=== PATIENT | male | born 1990 | race African-American/Black ===

== ENCOUNTER 2018-03-04 19:00 | Emergency (ER) | payer BC ==
[2018-03-04] MEDS ORDERED: NA CHLORIDE 0.9% 1,000 ML ONE ×2 (20:27→21:27)
[2018-03-04] MEDS ORDERED: ONDANSETRON 4 MG/2 ML VIAL ONE (20:27)
[2018-03-04 20:30] LABS: Absolute Lymphocytes (CBC) 1.8 K/uL (0.7-4.9); Absolute Monocytes 0.7 K/uL (0.1-1.3); Absolute Neutrophil 4.1 K/uL (1.8-8.0); Basophils % 0.8 % (0-1.3); Eosinophils % 0.9 % (0-4.4); Hematocrit 44.4 % (39.6-49.0); Lymphocytes % 26.5 % (15.3-44.8); MCV 91.5 fL (80-100); MPV 8.1 fL (7.6-11.3); Monocytes % 9.8 % (3.3-12.3); RBC Red Blood Cell Count 4.85 M/uL (4.33-5.43)
[2018-03-04 20:56] LABS: Albumin 4.7 g/dL (3.4-5.0); Bilirubin Direct 0.1 mg/dL (0-0.2); Bilirubin Total 0.9 mg/dL (0.2-1.0); Potassium 4.3 mmol/L (3.5-5.1); Protein, Total 9.6 g/dL (6.4-8.2)
[2018-03-04 21:08] LABS: Urine Blood NEGATIVE (NEG); Urine Glucose TRACE (NEG); Urine Protein 2+ (NEG); Urine Specific Gravity >1.030 (1.005-1.030); Urine pH 5.5 (5.0-7.0)
[2018-03-04 21:12] LABS: Calcium Oxalate Crystals- Ur FEW (NONE SEEN); Urine Amorphous Sediment 1+ /HPF (NONE SEEN); Urine Bacteria <20 /HPF (NONE SEEN); Urine Culture Reflex Order NOT NEEDED; Urine RBC <5 /HPF (NONE SEEN)
--- NOTE | 2018-03-04 21:47 | RAD REPORT ---
EXAM DESCRIPTION: CT - Stone Protocol - 03/04/2018 9:30 pm CLINICAL HISTORY: Flank pain. FLANK PAIN COMPARISON: No comparisons TECHNIQUE: Axial images were obtained without oral or IV contrast. Lack of contrast limits solid org an and vascular assessment. The [id number] spans the entirety of the system partially obscuring uppermost abdomen and lung bases. Coronal reformatted images were obtained and reviewed. All CT scans are performed using dose optimization technique as appropriate and may include automated exposure control or mA/KV adjustment according to patient size. FINDINGS: The lower lung galarza are clear. Imaged portions of the liver and spleen show no suspicious findings on non-contrast imaging. The panc reas and adrenal glands are normal. No pathologic lymphadenopathy in the abdomen or pelvis. No urinary tract stones or obstructive uropathy. No bowel obstruction, free air, free fluid or abscess. Normal appendix noted. No significant bony abnormality. IMPRESSION: No urinary tract stones or obstructive uropathy.
[2018-03-04 23:20] LABS: Potassium 3.9 mmol/L (3.5-5.1)
--- NOTE | 2018-03-04 23:29 | ER ---
Nurse's Notes [facility] Name: Tyrese Phelan Age: 27 yrs Sex: Male : 1990 Arrival Date: 03/04/2018 Time: 19:04 Bed 25 Private MD: None, None Diagnosis: Dehydration Presentation: 03/04 19:08 Presenting complaint: Patient states: Reports fatigue and muscle cramping that occurs aj "usually in the middle of the week, like Thursday or every week" for 1 month. Ambulated to triage with steady gait, in NAD. A+O x3. Transition of care: patient was not received from another setting of care. Onset of symptoms was January 01, 2018. Risk Assessment: Do you want to hurt yourself or someone else? Patient reports no desire to harm self or others. Initial Sepsis Screen: Does the patient meet any 2 criteria? No. Patient's initial sepsis screen is negative. Does the patient have a suspected source of infection? No. Patient's initial sepsis screen is negative. Care prior to arrival: None. 19:08 Method Of Arrival: Ambulatory 19:08 Acuity: NARCISA 4 aj Triage Assessment: 19:10 General: Appears in no apparent distress. comfortable, Behavior is calm, cooperative, aj appropriate for age. Pain: Denies pain. Neuro: Level of Consciousness is awake, alert, obeys commands, Oriented to person, place, time, situation, Appropriate for age. Respiratory: Airway is patent Respiratory effort is even, unlabored, Respiratory pattern is regular, symmetrical. Derm: Skin is intact, is healthy with good turgor, Skin is pink, warm \\T\\ dry. normal. Historical: - Allergies: 19:10 No Known Allergies; aj - Home Meds: 19:10 None [Active]; aj - PMHx: 19:10 None; aj - PSHx: 19:10 None; aj - Immunization history:: Adult Immunizations up to date. - Social history:: Smoking status: Patient/guardian denies using tobacco. - Ebola Screening: : Patient negative for fever greater than or equal to 101.5 degrees Fahrenheit, and additional compatible Ebola Virus Disease symptoms Patient denies exposure to infectious person Patient denies travel to an Ebola-affected area in the 21 days before illness onset No symptoms or risks identified at this time. Screenin:48 Abuse screen: Denies threats or abuse. Denies injuries from another. Nutritional ed1 screening: No deficits noted. Tuberculosis screening: No symptoms or risk factors identified. Fall Risk None identified. Assessment: 19:48 General: Appears in no apparent distress. Behavior is calm, cooperative, Pt ambulatory ed1 to exam room with steady gait. Pain: Complains of pain in generalized Pain does not radiate. Pain currently is 4 out of 10 on a pain scale. Quality of pain is described as aching, crampy, Pain began 1 day ago. Is continuous. Neuro: Level of Consciousness is awake, alert, obeys commands, Oriented to person, place, time, situation, Assembler Cards And Announcements are equal bilaterally Moves all extremities. Full function Gait is steady, Speech is normal, Facial symmetry appears normal, Pupils are PERRLA, Reports weakness. Cardiovascular: Denies chest pain, Heart tones S1 S2 present. Respiratory: Airway is patent Respiratory effort is even, unlabored, Respiratory pattern is regular, symmetrical, Breath sounds are clear bilaterally. GI: No signs and/or symptoms were reported involving the gastrointestinal system. : No signs and/or symptoms were reported regarding the genitourinary system. EENT: No signs and/or symptoms were reported regarding the EENT system. Derm: Skin is intact, is healthy with good turgor, Skin is dry, Skin is normal, Skin temperature is warm. Musculoskeletal: Circulation, motion, and sensation intact. 20:00 Reassessment: I agree with this assessment. bb 20:52 Reassessment: Patient appears in no apparent distress at this time. No changes from ed1 previously documented assessment. Patient and/or family updated on plan of care and expected duration. Pain level reassessed. Patient is alert, oriented x 3, equal unlabored respirations, skin warm/dry/pink. 22:00 Reassessment: Patient appears in no apparent distress at this time. No changes from ed1 previously documented assessment. Patient and/or family updated on plan of care and expected duration. Pain level reassessed. Patient is alert, oriented x 3, equal unlabored respirations, skin warm/dry/pink. 23:13 Reassessment: Patient appears in no apparent distress at this time. No changes from ed1 previously documented assessment. Patient and/or family updated on plan of care and expected duration. Pain level reassessed. Patient is alert, oriented x 3, equal unlabored respirations, skin warm/dry/pink. Vital Signs: 19:10 BP 135 / 95; Pulse 92; Resp 16; Temp 99.0; Pulse Ox 99% on R/A; Weight 92.99 kg; Height aj 5 ft. 11 in. (180.34 cm) (M); 20:59 BP 128 / 83; Pulse 81; Resp 17; Pulse Ox 100% on R/A; Pain 2/10; ed1 22:00 BP 125 / 80; Pulse 76; Resp 18; Pulse Ox 100% on R/A; Pain 4/10; ed1 23:13 BP 122 / 76; Pulse 83; Resp 17; Pulse Ox 100% on R/A; Pain 4/10; ed1 19:10 Body Mass Index 28.59 (92.99 kg, 180.34 cm) aj ED Course: 19:04 Patient arrived in ED. sb2 19:05 None, None is Private Physician. sb2 19:10 Triage completed. aj 19:10 Arm band placed on left wrist. Patient placed in an exam room, Patient notified of wait aj time. 19:40 Latesha Ramirez LVN is Primary Nurse. ed1 19:43 Kody Bird PA is PHCP. [facility] 19:43 Ricky Chatman MD is Attending Physician. [facility] 19:48 Kody at bedside to examine patient. ed1 19:48 Patient has correct armband on for positive identification. Bed in low position. Call ed1 light in reach. 20:26 Initial lab(s) drawn, by me, sent to lab. Inserted saline lock: 20 gauge in left ed1 antecubital area, using aseptic technique. Blood collected. 20:30 Urine collected: clean catch specimen, clear, alba colored. jp3 21:22 Patient moved to MI. nj 21:29 CT completed. Patient tolerated procedure well. Patient moved back from MI. mi 21:31 CT Stone Protocol In Process Unspecified. EDMS 22:40 PHCP role handed off by Kody Bird PA cp 22:40 Ricky Watkins PA is PHCP. cp 23:13 No provider procedures requiring assistance completed. ed1 23:18 Primary Nurse role handed off by Latesha Ramirez LVN ed1 23:49 IV discontinued, bleeding controlled, No redness/swelling at site. Pressure dressing rv applied. Administered Medications: 20:26 Drug: NS 0.9% 1000 ml Route: IV; Rate: 1 bolus; Site: left antecubital; ed1 21:24 Follow up: IV Status: Completed infusion; IV Intake: 1000ml ed1 20:28 Drug: Zofran 4 mg Route: IVP; Site: left antecubital; bb 21:10 Follow up: Response: No adverse reaction; Nausea is decreased ed1 21:24 Drug: NS 0.9% 1000 ml Route: IV; Rate: 1 bolus; Site: left antecubital; ed1 23:49 Follow up: IV Status: Completed infusion rv Intake: 21:24 IV: 1000ml; Total: 1000ml. ed1 Outcome: 23:28 Discharge ordered by MD. cp 23:49 Discharged to home ambulatory. rv 23:49 Condition: improved 23:49 Discharge instructions given to patient, Instructed on discharge instructions, follow up and referral plans. 23:49 Patient left the ED. rv Signatures: Dispatcher [employer] EDMS Denise Mariano, RN RN Kody Stephenson PA PA jmAlma Rosa Jordan RN RN bb Latesha Ramirez, MOTION PICTURE EQUIPMENT MACHINIST MOTION PICTURE EQUIPMENT MACHINIST ed1 Ricky Watkins PA PA Papa Vernon Sheri sb2 Migel Sin RN RN rv Amador Gottlieb jp3
--- NOTE | 2018-03-04 23:29 | EDPHYS ---
Physician Documentation [facility] Name: Tyrese Phelan Age: 27 yrs Sex: Male : 1990 Arrival Date: 03/04/2018 Time: 19:04 Bed 25 Private MD: None, None ED Physician Ricky Chatman HPI: 03/04 19:53 This 27 yrs old Black Male presents to ER via Ambulatory with complaints of jmm Vomiting/Fatigue. 19:53 Onset: The symptoms/episode began/occurred gradually, 2 week(s) ago. This is a 27 year jmm old male with no chronic medical conditions that presents to the ED with fatigue, vomiting, left flank pain beginning approx 2 weeks ago. 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 Patient denies abdominal pain but states that he will develop left flank pain with cramping. Patient states he has not urinated today. . Historical: - Allergies: 19:10 No Known Allergies; aj - Home Meds: 19:10 None [Active]; aj - PMHx: 19:10 None; aj - PSHx: 19:10 None; aj - Immunization history:: Adult Immunizations up to date. - Social history:: Smoking status: Patient/guardian denies using tobacco. - Ebola Screening: : Patient negative for fever greater than or equal to 101.5 degrees Fahrenheit, and additional compatible Ebola Virus Disease symptoms Patient denies exposure to infectious person Patient denies travel to an Ebola-affected area in the 21 days before illness onset No symptoms or risks identified at this time. ROS: 19:57 Cardiovascular: Negative for chest pain, palpitations, and edema, Respiratory: Negative jmm for shortness of breath, cough, wheezing, and pleuritic chest pain. 19:57 Constitutional: Positive for fatigue. 19:57 Abdomen/GI: Positive for nausea and vomiting, flank pain. 19:57 Neuro: Positive for weakness. 19:57 All other systems are negative. Exam: 19:57 Constitutional: This is a well developed, well nourished patient who is awake, alert, jmm and in no acute distress. Head/Face: atraumatic. Chest/axilla: Normal chest wall appearance and motion. Cardiovascular: Regular rate and rhythm. No edema appreciated Respiratory: Normal respirations, no respiratory distress appreciated Abdomen/GI: Non distended, soft 19:57 Back: CVA tenderness, is absent. 19:57 Musculoskeletal/extremity: ROM: intact in all extremities. 19:57 Skin: Appearance: Color: normal in color. 19:57 Neuro: Orientation: is normal, Mentation: is normal, Memory: is normal. 19:57 Psych: Behavior/mood is pleasant, cooperative. Vital Signs: 19:10 BP 135 / 95; Pulse 92; Resp 16; Temp 99.0; Pulse Ox 99% on R/A; Weight 92.99 kg; Height aj 5 ft. 11 in. (180.34 cm) (M); 20:59 BP 128 / 83; Pulse 81; Resp 17; Pulse Ox 100% on R/A; Pain 2/10; ed1 22:00 BP 125 / 80; Pulse 76; Resp 18; Pulse Ox 100% on R/A; Pain 4/10; ed1 23:13 BP 122 / 76; Pulse 83; Resp 17; Pulse Ox 100% on R/A; Pain 4/10; ed1 19:10 Body Mass Index 28.59 (92.99 kg, 180.34 cm) aj MDM: 19:52 Patient medically screened. [facility] 22:37 Data reviewed: vital signs, nurses notes, lab test result(s), radiologic studies, CT [facility] scan. Transition of care: After a detail discussion of the patient's case, care is transferred to Ricky STACK. 03/04 19:53 Order name: Amylase, Serum; Complete Time: 21:13 [facility] 03/04 19:53 Order name: Basic Metabolic Panel; Complete Time: 21:13 [facility] 03/04 19:53 Order name: CBC with Diff; Complete Time: 20:40 [facility] 03/04 19:53 Order name: Creatinine for Radiology; Complete Time: 21:13 [facility] 03/04 19:53 Order name: Hepatic Function; Complete Time: 21:13 [facility] 03/04 19:53 Order name: Lipase; Complete Time: 21:13 [facility] 03/04 19:53 Order name: Urine Microscopic Only; Complete Time: 21:13 [facility] 03/04 19:53 Order name: CPK; Complete Time: 21:13 [facility] 03/04 20:48 Order name: Urine Dipstick--Ancillary (enter results); Complete Time: 21:13 de 03/04 21:19 Order name: CT Stone Protocol; Complete Time: 21:51 [facility] 03/04 22:10 Order name: BMP; Complete Time: 23:24 [facility] 03/04 19:53 Order name: IV Saline Lock; Complete Time: 20:29 [facility] 03/04 19:53 Order name: Labs collected and sent; Complete Time: 20:29 [facility] 03/04 19:53 Order name: Urine Dipstick-Ancillary (obtain specimen); Complete Time: 20:29 [facility] Administered Medications: 20:26 Drug: NS 0.9% 1000 ml Route: IV; Rate: 1 bolus; Site: left antecubital; ed1 21:24 Follow up: IV Status: Completed infusion; IV Intake: 1000ml ed1 20:28 Drug: Zofran 4 mg Route: IVP; Site: left antecubital; bb 21:10 Follow up: Response: No adverse reaction; Nausea is decreased ed1 21:24 Drug: NS 0.9% 1000 ml Route: IV; Rate: 1 bolus; Site: left antecubital; ed1 23:49 Follow up: IV Status: Completed infusion rv Disposition: 03/05 07:27 Co-signature as Attending Physician, Ricky Chatman MD I agree with the assessment and [facility] plan of care. Disposition: 03/04/18 23:28 Discharged to Home. Impression: Dehydration. - Condition is Stable. - Discharge Instructions: Dehydration, Adult, Form - Excuse from Work, School, or Physical Activity. - Medication Reconciliation Form, Thank You Letter, Antibiotic Education, Prescription Opioid Use, Work release form form. - Follow up: Private Physician; When: 1 - 2 days; Reason: Recheck today's complaints. - Problem is new. - Symptoms have improved. Signatures: Dispatcher [employer] EDMS Denise Mariano RN RN aj Anderson, Corey, MD MD cha Mickail, Joel, PA PA jmm Ballard, Brenda RN RN Latesha Barth, ASSEMBLER BRAZER ASSEMBLER BRAZER ed1 Ricky Watkins PA PA cp Vicente, Ronaldo, RN RN rv Corrections: (The following items were deleted from the chart) 03/04 23:49 23:28 03/04/2018 23:28 Discharged to Home. Impression: Dehydration. Condition is rv Stable. Forms are Medication Reconciliation Form, Thank You Letter, Antibiotic Education, Prescription Opioid Use. Follow up: Private Physician; When: 1 - 2 days; Reason: Recheck today's complaints. Problem is new. Symptoms have improved. cp
== END 2018-03-04 23:49 | disposition home or self-care (01) ==
LOC: ER 19:00
DX: E86.0 Dehydration (principal)
CPT/HCPCS: 36415; 74176; 76377; 80048; 80076; 81003; 81015; 82150; 82550; 83690; 85025; 96361; 96374; 99284; J2405; J7030